=== PATIENT | male | born 2000 | race Hispanic/Latino ===

== ENCOUNTER 2020-01-08 23:28 | Emergency (ER) | payer OTHER, SELFPAY ==
[2020-01-08 23:39] VITALS: BP 127/57; PULSE 62; RESP 18; TEMP 36.6; O2SAT 96
--- NOTE | 2020-01-09 01:06 | ED.EAR ---
HPI - Ear Problem General Chief complaint: Ear Stated complaint: ringing in ears/cant hear Time Seen by Provider: 01/09/20 00:13 Source: patient Mode of arrival: ambulatory Limitations: no limitations History of Present Illness HPI Narrative: Patient is a 19-year-old male complaining of ringing in the right ear and unable to hear in that ear. 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 He denies any injury to the ear. Denies any ear discharge. Denies any swelling. Denies fever. Related Data Home Medications Medication Instructions Recorded Confirmed No Home Medications 01/08/20 Allergies Allergy/AdvReac Type Severity Reaction Status Date / Time No Known Allergies Allergy Verified 01/08/20 23:42 Review of Systems Review of Systems: All systems reviewed & are unremarkable except as noted in HPI and below PMFSH Social History Social History Gender identity (if verbalized by the patient): Male Sexual Orientation (if Verbalized by the Patient): Straight or Heterosexual Exam Const: General: no acute distress and alert Orientation/consciousness: patient oriented x3 HENMT: Head: normal to inspection, no contusions, no hematomas and no lacerations Ears: external ears normal and EAC's normal General nose exam: Normal external nose present, Normal nares present, no nasal discharge noted and no epistaxis Face and sinus: normal facial exam Mouth: Yes lip normal and Yes moist mucous membranes Teeth and gingiva: abnormal tooth and associated gingiva Other: Cerumen impaction right external ear canal Course Vital Signs Vital signs: Vital Signs Temperature 36.6 C 01/08/20 23:39 Pulse Rate 62 01/08/20 23:39 Respiratory Rate 18 01/08/20 23:39 Blood Pressure 127/57 L 01/08/20 23:39 Pulse Oximetry 96 01/08/20 23:39 Temperature 36.6 C 01/08/20 23:39 Pulse Rate 62 01/08/20 23:39 Respiratory Rate 18 01/08/20 23:39 Blood Pressure 127/57 L 01/08/20 23:39 Pulse Oximetry 96 01/08/20 23:39 Medical Decision Making Vital Signs Vital Signs: Vital Signs Temperature 36.6 C 01/08/20 23:39 Pulse Rate 62 01/08/20 23:39 Respiratory Rate 18 01/08/20 23:39 Blood Pressure 127/57 L 01/08/20 23:39 Pulse Oximetry 96 01/08/20 23:39 Temperature 36.6 C 01/08/20 23:39 Pulse Rate 62 01/08/20 23:39 Respiratory Rate 18 01/08/20 23:39 Blood Pressure 127/57 L 01/08/20 23:39 Pulse Oximetry 96 01/08/20 23:39 Discharge Plan Discharge Clinical Impression: Cerumen impaction Qualifiers: Laterality: right Qualified Code(s): H61.21 - Impacted cerumen, right ear Patient Disposition: Home, Self-Care Condition: Stable Instructions: Antibiotic Form, Carbamide Peroxide (Into the ear) Prescriptions: No Action No Home Medications RF: 0 Follow-up/Referrals: PHYSICIAN,[employer] DEVELOPER [Primary Care Provider] - 01/10/20 aNeem Magana MD [Physician] - 01/10/20 Time of Disposition: 01:10
== END 2020-01-09 01:15 | disposition home or self-care (01) ==
PROVIDERS: Emergency Provider Emergency Medicine
DX: H61.21 Impacted cerumen, right ear (principal)
CPT/HCPCS: 99281